=== PATIENT | male | born 1985 | race Two or more races ===

== ENCOUNTER 2023-04-11 11:03 | Emergency (ER) | payer MEDICAID, OTHER ==
[~2023-04-11] VITALS: Ht 170.2 cm; Wt 92.0 kg
[2023-04-11] MEDS ORDERED: LORazepam 2MG/ML-1ML VIAL IV ONE (11:30)
[2023-04-11 11:53] VITALS: PULSE 106; RESP 18; O2SAT 96
[2023-04-11] MEDS ORDERED: FOLIC ACID 1 MG, MULTIPLE VITAMIN 10 ML, MAGNESIUM SULF SDV 50% 8 MEQ, THIAMINE INJ 100... INJ SCH ×5 (12:00)
[2023-04-11 12:10] LABS: Basophils # (auto) 0.2 10 ^3/uL (0-0.2); Eosinophils # (auto) 0 10 ^3/uL (0-0.8); Hemoglobin 15.8 g/dL (13.5-17.5); Neutrophils # (auto) 3.9 10 ^3/uL (1.6-8.6)
[2023-04-11 12:20] LABS: Alanine Aminotransferase 86 U/L (7-40); Albumin 5.2 g/dL (3.2-4.8); Alkaline Phosphatase 124 U/L (46-116); Anion Gap 8 (5-15); Aspartate Aminotransferase 220 U/L (13-40); BUN/Creatinine Ratio 10.5 (10.0-20.0); Basophils % (auto) 3.4 % (0.0-2.0); Blood Alcohol < 3.0 mg/dL (<10); Blood Urea Nitrogen 9 mg/dL (9-23); Carbon Dioxide 30 mmol/L (20-30); Chloride 100 mmol/L (98-107); Eosinophils % (auto) 0.6 % (0.0-7.0); Glucose 89 mg/dL (74-106); Hematocrit 44.5 % (41.0-53.0); Lymphocytes # (auto) 0.8 10 ^3/uL (0.4-5.4); Lymphocytes % (auto) 13.4 % (10.0-50.0); Mean Corpuscular Hemoglobin 35.1 pg (28.0-32.0); Mean Corpuscular Hgb Conc. 35.5 g/dL (32.0-36.0); Monocytes % (auto) 16.8 % (0.0-12.0); Neutrophils % (auto) 65.8 % (37.0-80.0); Potassium 3.5 mmol/L (3.5-5.1); Red Cell Distribution Width 15.2 % (11.8-14.3); Sodium 138 mmol/L (136-145); White Blood Cell 5.9 10^3/uL (4.4-10.8)
[2023-04-11 12:21] LABS: Bilirubin, Total 2.1 mg/dL (0.2-1.0); Total Protein 8.7 g/dL (5.7-8.2)
[2023-04-11 12:58] LABS: Amphetamine Screen, Urine Neg (NEGATIVE); Barbiturate Scree,Urine Neg (NEGATIVE); Benzodiazephine Screen, Urine Neg (NEGATIVE); Cannabinoid Screen, Urine Neg (NEGATIVE); Cocaine Screen, Urine Neg (NEGATIVE); Opiate Scree,Urine Neg (NEGATIVE); Phencyclidine Screen, Urine Neg (NEGATIVE)
[2023-04-11] MEDS ORDERED: CHL10C PO (15:17)
[2023-04-11 15:37] VITALS: BP 130/91; PULSE 98; RESP 16; TEMP 98.7; O2SAT 96
== END 2023-04-11 15:38 | disposition home or self-care (01) ==
LOC: ER 11:03
DX: F10.239 Alcohol dependence with withdrawal, unspecified (principal); K80.20 Calculus of gallbladder without cholecystitis without obstruction; Z79.899 Other long term (current) drug therapy; Z88.8 Allergy status to other drugs, medicaments and biological substances; Y90.0 Blood alcohol level of less than 20 mg/100 ml
CPT/HCPCS: 36415; 74176; 80053; 80307; 80320; 85025; 96365; 96375; 99285; J2060; J3411; J3475; J7030

== ENCOUNTER 2023-09-17 18:10 | Emergency (ER) | payer MEDICAID ==
[~2023-09-17] VITALS: Ht 172.7 cm; Wt 110.0 kg
[~2023-09-17 18:10] MED LIST: CHL10C PO
[2023-09-17 19:12] LABS: Basophils # (auto) 0.2 10 ^3/uL (0-0.2); Basophils % (auto) 2.2 % (0.0-2.0); Eosinophils # (auto) 0 10 ^3/uL (0-0.8); Hematocrit 49.9 % (41.0-53.0); Hemoglobin 16.9 g/dL (13.5-17.5); Lymphocytes # (auto) 1.3 10 ^3/uL (0.4-5.4); Lymphocytes % (auto) 15.9 % (10.0-50.0); Mean Corpuscular Hgb Conc. 33.8 g/dL (32.0-36.0); Mean Corpuscular Volume 97.7 fL (80.0-100.0); Monocytes # (auto) 0.5 10 ^3/uL (0-1.3); Monocytes % (auto) 5.8 % (0.0-12.0); Neutrophils # (auto) 6.3 10 ^3/uL (1.6-8.6); Neutrophils % (auto) 76.1 % (37.0-80.0); Nucleated Red Blood Cells % 0.1 %; Red Blood Cells 5.11 10^6/uL (4.5-5.90); Red Cell Distribution Width 15.1 % (11.8-14.3); White Blood Cell 8.3 10^3/uL (4.4-10.8)
[2023-09-17 19:26] LABS: Alanine Aminotransferase 29 U/L (7-40); Albumin 5.2 g/dL (3.2-4.8); Alkaline Phosphatase 109 U/L (46-116); Anion Gap 19 (5-15); Aspartate Aminotransferase 73 U/L (13-40); BUN/Creatinine Ratio 8.3 (10.0-20.0); Blood Urea Nitrogen 7 mg/dL (9-23); Calcium 9.1 mg/dL (8.5-10.1); Carbon Dioxide 20 mmol/L (20-30); Chloride 100 mmol/L (98-107); Glucose 84 mg/dL (74-106); Potassium 4.4 mmol/L (3.5-5.1); Sodium 139 mmol/L (136-145)
[2023-09-17 19:27] LABS: Total Protein 8.6 g/dL (5.7-8.2)
[2023-09-17 19:37] LABS: Urine Bacteria FEW /hpf (None Seen); Urine Blood 2+ /uL (Negative); Urine Clarity HAZY (Clear); Urine Color Yellow (Yellow); Urine Hyaline Cast FEW /lpf (0 - 2); Urine Mucus FEW (None Seen); Urine Protein, UAD 4+ (Negative); Urine Specific Gravity 1.041 (1.001-1.035); Urine Sperm PRESENT /hpf (None Seen); Urine Urobilinogen Normal (Negative); Urine WBC 4 /hpf (0 - 3)
[2023-09-17 19:43] LABS: Lipase 38 U/L (12-53)
[2023-09-17 19:49] LABS: Salicylate < 3.0 mg/dL (2.8-20.0)
[2023-09-17 19:49] LABS: Amphetamine Screen, Urine Neg (NEGATIVE); Barbiturate Scree,Urine Neg (NEGATIVE); Benzodiazephine Screen, Urine Pos (NEGATIVE); Cannabinoid Screen, Urine Neg (NEGATIVE); Cocaine Screen, Urine Neg (NEGATIVE); Opiate Scree,Urine Neg (NEGATIVE); Phencyclidine Screen, Urine Neg (NEGATIVE)
[2023-09-17 20:40] VITALS: RESP 20; O2SAT 96
[2023-09-17] MEDS: IOHEXOL 350 MG/ML 100ML IJ ONE (20:57)
[2023-09-17 23:36] LABS: Alanine Aminotransferase 25 U/L (7-40); Albumin 4.6 g/dL (3.2-4.8); Alkaline Phosphatase 93 U/L (46-116); Anion Gap 15 (5-15); Aspartate Aminotransferase 59 U/L (13-40); BUN/Creatinine Ratio 10.4 (10.0-20.0); Blood Urea Nitrogen 7 mg/dL (9-23); Carbon Dioxide 21 mmol/L (20-30); Chloride 103 mmol/L (98-107); Glucose 79 mg/dL (74-106); Potassium 3.9 mmol/L (3.5-5.1); Sodium 139 mmol/L (136-145)
[2023-09-17 23:37] LABS: Bilirubin, Total 1.1 mg/dL (0.2-1.0); Total Protein 7.6 g/dL (5.7-8.2)
[2023-09-18] MEDS: chlordiazePOXIDE HCL 25 MG CAP PO ONE (01:00)
[2023-09-18 07:45] VITALS: PULSE 113; RESP 18; O2SAT 100
[2023-09-18 14:08] VITALS: BP 127/75; PULSE 96; RESP 16; TEMP 97.7; O2SAT 100
== END 2023-09-18 14:38 | disposition short-term general hospital (02) ==
LOC: EDUNIT# 18:10 → ER 18:10 → EDBD 18:10 → ER 09-18 14:38
DX: T50.902A Poisoning by unspecified drugs, medicaments and biological substances, intentional self-harm, initial encounter (principal); R51.9 Headache, unspecified; Z79.899 Other long term (current) drug therapy; Z88.8 Allergy status to other drugs, medicaments and biological substances; Y92.89 Other specified places as the place of occurrence of the external cause
CPT/HCPCS: 36415; 70450; 80053; 80307; 80320; 80329; 81001; 83690; 85025; 93005; 99285; Q9967

== ENCOUNTER 2023-12-29 15:17 | Emergency (ER) | payer MEDICAID ==
[~2023-12-29] VITALS: Ht 170.2 cm; Wt 89.8 kg
[2023-12-29 16:00] LABS: Basophils # (auto) 0 10 ^3/uL (0-0.2); Basophils % (auto) 0.3 % (0.0-2.0); Eosinophils # (auto) 0 10 ^3/uL (0-0.8); Eosinophils % (auto) 0.6 % (0.0-7.0); Hematocrit 45.7 % (41.0-53.0); Lymphocytes # (auto) 1.5 10 ^3/uL (0.4-5.4); Lymphocytes % (auto) 32.9 % (10.0-50.0); Mean Corpuscular Hemoglobin 35.2 pg (28.0-32.0); Mean Corpuscular Volume 100.5 fL (80.0-100.0); Monocytes # (auto) 0.6 10 ^3/uL (0-1.3); Neutrophils # (auto) 2.5 10 ^3/uL (1.6-8.6); Neutrophils % (auto) 53.2 % (37.0-80.0); Red Blood Cells 4.54 10^6/uL (4.5-5.90); Red Cell Distribution Width 14.2 % (11.8-14.3); White Blood Cell 4.7 10^3/uL (4.4-10.8)
[2023-12-29] MEDS: THIAMINE HCL 100 MG TAB PO ONE (16:00)
[2023-12-29 16:03] VITALS: BP 147/99; PULSE 92; RESP 18; TEMP 98.4; O2SAT 97
[2023-12-29 16:22] LABS: Alanine Aminotransferase 27 U/L (7-40); Albumin 4.7 g/dL (3.2-4.8); Alkaline Phosphatase 95 U/L (46-116); Anion Gap 10 (5-15); Aspartate Aminotransferase 50 U/L (13-40); Bilirubin, Total 0.5 mg/dL (0.2-1.0); Blood Alcohol 131.3 mg/dL (<10); Calcium 9.2 mg/dL (8.5-10.1); Carbon Dioxide 25 mmol/L (20-30); Chloride 106 mmol/L (98-107); Glucose 121 mg/dL (74-106); Potassium 3.4 mmol/L (3.5-5.1); Sodium 141 mmol/L (136-145); Total Protein 7.9 g/dL (5.7-8.2)
[2023-12-29 16:35] LABS: BUN/Creatinine Ratio 7.6 (10.0-20.0); Blood Urea Nitrogen < 5 mg/dL (9-23)
[2023-12-29 17:11] LABS: Urine Bacteria None Seen /hpf (None Seen)
[2023-12-29] MEDS: FOLIC ACID 1 MG, MAGNESIUM SULF SDV 50% 8 MEQ, MULTIPLE VITAMIN 10 ML, THIAMINE INJ 100... INJ SCH (17:17)
[2023-12-29 17:36] LABS: Urine Blood Negative /uL (Negative); Urine Clarity Clear (Clear); Urine Color Light-Yellow (Yellow); Urine Protein, UAD TRACE (Negative); Urine Specific Gravity 1.014 (1.001-1.035); Urine Urobilinogen Normal (Negative); Urine WBC <1 /hpf (0 - 3); Urine pH 7.5 (5.0-9.0)
[2023-12-29 17:42] LABS: Amphetamine Screen, Urine Neg (NEGATIVE); Barbiturate Scree,Urine Neg (NEGATIVE); Benzodiazephine Screen, Urine Pos (NEGATIVE); Cocaine Screen, Urine Neg (NEGATIVE)
[2023-12-29 17:43] LABS: Cannabinoid Screen, Urine Neg (NEGATIVE); Opiate Scree,Urine Neg (NEGATIVE); Phencyclidine Screen, Urine Neg (NEGATIVE)
[2023-12-29] MEDS ORDERED: FOLIC ACID 1 MG, MAGNESIUM SULF SDV 50% 8 MEQ, MULTIPLE VITAMIN 10 ML, THIAMINE INJ 100... INJ SCH (18:00)
[2023-12-29] MEDS ORDERED: ACET500T58 PO (19:30)
[2023-12-29] MEDS ORDERED: IBUP-1455 PO (19:30)
[2023-12-29] MEDS ORDERED: ZOFR4T PO (19:30)
== END 2023-12-29 22:14 | disposition home or self-care (01) ==
LOC: ER 15:19
DX: F10.139 Alcohol abuse with withdrawal, unspecified (principal); F10.129 Alcohol abuse with intoxication, unspecified; R51.9 Headache, unspecified; F12.10 Cannabis abuse, uncomplicated; Z88.6 Allergy status to analgesic agent; Z79.899 Other long term (current) drug therapy; Y90.8 Blood alcohol level of 240 mg/100 ml or more
CPT/HCPCS: 36415; 80053; 80307; 80320; 81001; 83880; 85025; 99283; J3411; J3475; J7030

== ENCOUNTER 2025-03-11 16:20 | Emergency (ER) | payer MEDICAID ==
[~2025-03-11] VITALS: Ht 175.3 cm; Wt 95.2 kg
[~2025-03-11 16:20] MED LIST changes: +ACET500T58 PO; +IBUP-1455 PO; +ZOFR4T PO
[2025-03-11 16:21] VITALS: BP 108/68; RESP 20; TEMP 99.2; O2SAT 94
--- NOTE | 2025-03-11 16:43 | ECG ---
[facility] Test Date: 2025-03-11 Test Time: 16:35:32 Pat Name: EVI RUSSELL Department: ED Room: Gender: M Brand Analyst: : 1985 Requested By: RAMANA WARD Order Number: [id number] Reading MD: Chan Crockett Measurements Intervals [place] Rate: 124 P: 49 OK: 128 QRS: 77 QRSD: 88 T: 27 QT: 315 QTc: 453 Interpretive Statements Sinus tachycardia Electronically Signed On 03-12-2025 18:47:34 PDT by Chan Crockett Please click the below link to view image of tracing.
[2025-03-11] MEDS ORDERED: SODIUM CHLORIDE 0.9% 1,000 ML IV ONE (16:45)
[2025-03-11] MEDS ORDERED: LORazepam 2MG/ML-1ML VIAL IV ONE (16:45)
[2025-03-11 16:48] VITALS: PULSE 124
--- NOTE | 2025-03-11 16:48 | ED.PDOC ---
History of Present Illness HPI Comments This is a 39-year-old male who comes in with chief complaint of alcohol intoxication. The patient has been drinking since Monday according to his father. He drinks all day every day. At this time, the patient came into the emergency department's initially and then was trying to leave. He has been complaining of some chest pain and palpitations. The patient has also been having some tremors and vomiting. At this time he states that the chest pain is a 9/10. There has been associated shortness for breath. He is accompanied in the emergency department's by his father. The patient denies any suicidal ideation or homicidal ideation. He denies any other substance use. Chief Complaint: Withdrawal Time Seen by MD: 16:39 Primary Care Provider: UNKNOWN Reviewed Notes: Nurses Notes, Medications, Allergies (Allergies to ibuprofen) Allergies: Coded Allergies: Ibuprofen (Verified Allergy, Unknown, 04/11/23) Home Meds Active Scripts Ondansetron Odt 4MG Tab (ZOFRAN PO) 4 Mg Tb, 4 MG PO Q6HP PRN, #10 TAB ODT TAB-DISSOLVE IN MOUTH, THEN SWALLOW Prov:ELAINE KENNEY PAC 12/29/23 Acetaminophen (Acetaminophen) 500 Mg Tab, 500 MG PO Q4HP PRN, #30 TAB Prov:ELAINE KENNEY PAC 12/29/23 Ibuprofen Micronized (Ibuprofen) 800 Mg Tab, 800 MG PO Q8HP PRN, #20 TAB Prov:ELAINE KENNEY PAC 12/29/23 Chlordiazepoxide Hcl (Ni-1) (I (Librium) 10 Mg Cap, 10 MG PO BID for 5 Days, #10 CAP Prov:RAMANA WARD MD 04/11/23 Information Source: Patient, Relative (Father) Mode of Arrival: Ambulatory Severity: Moderate Timing: Days Duration: Since onset Prehospital treatment: None Associated signs and symptoms Associated palpitations with the vomiting and tremors Past Medical History PAST MEDICAL HISTORY: Depression, Seizures Past Medical History (Other): History of liver disease Surgical History: Denies all surgeries Family History Family History: Family hx of Cancer, Family hx of heart sumanth Social History Smoker: Non-Smoker Alcohol: Heavy Drugs: Marijuana Lives In: Home Constitutional: denies: chills, diaphoresis, fatigue, fever, malaise, sweats, weakness, others EENTM: denies: blurred vision, double vision, ear bleeding, ear discharge, ear drainage, ear pain, ear ringing, eye pain, eye redness, hearing loss, mouth pain, mouth swelling, nasal discharge, nose bleeding, nose congestion, nose pain, photophobia, tearing, throat pain, throat swelling, voice changes, others Respiratory: denies: cough, hemoptysis, orthopnea, SOB at rest, shortness of breath, SOB with excertion, stridor, wheezing, others Cardiovascular: reports: chest pain, palpitations; denies: dizzy spells, diaphoresis, Dyspnea on exertion, edema, irregular heart beat, left arm pain, lightheadedness, PND, syncope, others Gastrointestinal: reports: nausea, vomiting; denies: abdomen distended, abdominal pain, blood streaked bowels, constipated, diarrhea, dysphagia, difficulty swallowing, hematemesis, melena, poor appetite, poor fluid intake, rectal bleeding, rectal pain, others Genitourinary: denies: burning, dysuria, flank pain, frequency, hematuria, incontinence, penile discharge, penile sore, pain, testicle pain, testicle swe lling, urgency, others Neurological: reports: tremors; denies: dizziness, fainting, headache, left sided numbness, left sided weakness, numbness, paresthesia, pre-existing deficit, right sided numbness, right sided weakness, seizure, speech problems, tingling, weakness, others Musculoskeletal: denies: back pain, gout, joint pain, joint swelling, muscle pain, muscle stiffness, neck pain, others Integumetry: denies: bruises, change in color, change in hair/nails, dryness, laceration, lesions, lumps, rash, wounds, others Allergic/Immunocompromised: denies: Difficulty Healing, Frequent Infections, Hives, Itching, others Hematologic/Lymphatic: denies: anemia, blood clots, easy bleeding, easy bruising, swollen glands, others Endocrine: denies: excessive hunger, excessive sweating, excessive thirst, excessive urination, flushing, intolerance to cold, intolerance to heat, unexplained weight gain, unexplained weight loss, others Psychiatric: denies: anxiety, bipolar disorder, depression, hopeless, panic disorder, schizophrenia, sleepless, suicidal, others Physical Exam General Appearance: Moderate Distress HEENT: Normal ENT Inspection, Pharynx Normal, TMs Normal Neck: Full Range of Motion, Non-Tender, Normal, Normal Inspection Respiratory: Chest Non-Tender, Lungs Clear, No Accessory Muscle Use, No Respiratory Distress, Normal Breath Sounds Cardiovascular: No Edema, No JVD, No Murmur, No Gallop, Tachycardia Breast Exam: Deferred Gastrointestinal: No Organomegaly, Non Tender, No Pulsatile Mass, Normal Bowel Sounds, Soft Genitalia: Deferred Pelvic: Deferred Rectal: Deferred Extremities: No calf tenderness, Normal capillary refill, No pedal edema Musculoskeletal : Apperance: Normal Neurologic: Alert, bulk fluids handler II-XII nml as Tested, Motor Weakness, Normal Affect, Normal Mood, No Sensory Deficits Cerebellar Function: Normal Reflexes: Normal Skin: Dry, Normal Color, Warm Lymphatic: No Adenopathy Was a procedure done? Was a procedure done?: No EKG EKG : Pulse Rate (adult): 124 [place]: Normal Cardiac Rhythm: ST Block: None ST: Nonsp Differential Dx Considerations may include: Alcohol withdrawal, delirium tremens, seizures, generalized weakness X-Ray, Labs, Meds, VS Vital Signs Date Time Temp Pulse Resp B/P (MAP) Pulse Ox O2 Delivery O2 Flow Rate FiO2 03/11/25 16:48 124 03/11/25 16:35 124 03/11/25 16:21 99.2 135 20 108/68 94 99.2 Lab Test 03/11/25 16:51 Range/Units White Blood Count 6.7 4.4-10.8 10^3/uL Red Blood Count 4.98 4.5-5.90 10^6/uL Hemoglobin 16.1 13.5-17.5 g/dL Hematocrit 45.9 41.0-53.0 % Mean Corpuscular Volume 92.3 80.0-100.0 fL Mean Corpuscular Hemoglobin 32.4 H 28.0-32.0 pg Mean Corpuscular Hemoglobin Concent 35.1 32.0-36.0 g/dL Red Cell Distribution Width 13.6 11.8-14.3 % Platelet Count 255 140-450 10^3/uL Mean Platelet Volume 8.3 6.9-10.8 fL Neutrophils (%) (Auto) 55.5 37.0-80.0 % Lymphocytes (%) (Auto) 32.6 10.0-50.0 % Monocytes (%) (Auto) 10.5 0.0-12.0 % Eosinophils (%) (Auto) 0.2 0.0-7.0 % Basophils (%) (Auto) 1.2 0.0-2.0 % Neutrophils # (Auto) 3.7 1.6-8.6 10 ^3/uL Lymphocytes # (Auto) 2.2 0.4-5.4 10 ^3/uL Monocytes # (Auto) 0.7 0-1.3 10 ^3/uL Eosinophils # (Auto) 0 0-0.8 10 ^3/uL Basophils # (Auto) 0.1 0-0.2 10 ^3/uL Nucleated Red Blood Cells 0.1 % Sodium Level 142 136-145 mmol/L Potassium Level 3.3 L 3.5-5.1 mmol/L Chloride Level 102 98-107 mmol/L Carbon Dioxide Level 24 20-31 mmol/L Anion Gap 16 H 5-15 Blood Urea Nitrogen 8 L 9-23 mg/dL Creatinine 0.77 0.700-1.30 mg/dL Glomerular Filtration Rate Calc 118 >90 mL/min BUN/Creatinine Ratio 10.4 10.0-20.0 Serum Glucose 147 H 74-106 mg/dL Calcium Level 8.8 8.7-10.4 mg/dL Troponin I High Sensitivity Pending Plasma/Serum Blood Alcohol Pending IV Hep-Lock was established The patient was given Ativan 2 mg IV push Seizure precautions are being placed on the patient's secondary to his history of seizures. The patient will be bolused with normal saline at 1 L bolus The patient had a CBC and chemistry done which are within normal limits except for mild hypokalemia and the patient has now left the department's. Time of 1ST Reevaluation: 16:48 Reevaluation 1ST: Unchanged Patient Education/Counseling: Diagnosis, Treatment, Prognosis Family Education/Counseling: Diagnosis, Treatment, Prognosis SEPSIS Sepsis Screen Date sepsis recognized/suspect: Mar 11, 2025 Time Sepsis recognized/suspect: 1620 Recent Procedure: No On Antibiotic Therapy: No Respiratory Rate >20: No Heart Rate >90: Yes Temp<36 C (96.8 F) or >38.3 C: No SBP <90 or MAP <65 mmHG: No New Acute Mental Status Change: No Is the patient on CPAP, BIPAP,: No Physician Orders Troponin-I Hs (03/11/25 16:40) Basic Metabolic Panel (03/11/25 16:40) Heplock Iv (03/11/25 16:40) Rivet Machine Operator (03/11/25 16:40) Blood Pressure (03/11/25 16:40) Pulse Oximetry (03/11/25 16:40) Sodium Chloride 0.9% (03/11/25 16:45) Blood Alcohol (03/11/25 16:40) Drug Screen (03/11/25 16:40) Troponin-I Hs (03/11/25 17:40) Troponin-I Hs (03/11/25 19:40) Electrocardigram (03/11/25 17:40) Electrocardigram (03/11/25 19:40) Seizure Precautions In Place (03/11/25 16:48) Vital Signs Date Time Temp Pulse Resp B/P (MAP) Pulse Ox O2 Delivery O2 Flow Rate FiO2 03/11/25 16:48 124 03/11/25 16:35 124 03/11/25 16:21 99.2 135 20 108/68 94 99.2 Laboratory Tests Test 03/11/25 16:51 White Blood Count 6.7 10^3/uL (4.4-10.8) Departure 1 Departure Time of Disposition: 17:31 Impression: Primary Impression: Alcohol abuse Additional Impression: Hypokalemia Disposition: 07 LEFT AWOL/ELOPED Condition: Fair Critical Care Note Critical Care Time?: No Stability Stability form required: No Heart Score Heart Score: Heart Score Response (Comments) Value History N/A 0 EKG N/A 0 Age N/A 0 Risk Factors N/A 0 Troponin N/A 0 Total 0 RAMANA WARD MD Mar 11, 2025 16:48
[2025-03-11 17:03] LABS: Hematocrit 45.9 % (41.0-53.0); Hemoglobin 16.1 g/dL (13.5-17.5); Mean Corpuscular Hemoglobin 32.4 pg (28.0-32.0); Mean Corpuscular Volume 92.3 fL (80.0-100.0); Nucleated Red Blood Cells % 0.1 %
[2025-03-11 17:09] LABS: Chloride 102 mmol/L (98-107); Sodium 142 mmol/L (136-145)
[2025-03-11 17:10] LABS: Anion Gap 16 (5-15); Calcium 8.8 mg/dL (8.7-10.4); Carbon Dioxide 24 mmol/L (20-31)
[2025-03-11 17:11] LABS: Potassium 3.3 mmol/L (3.5-5.1)
[2025-03-11 17:15] LABS: BUN/Creatinine Ratio 10.4 (10.0-20.0); Blood Urea Nitrogen 8 mg/dL (9-23); Glucose 147 mg/dL (74-106)
== END 2025-03-11 17:02 | disposition left against medical advice (07) ==
LOC: ER 16:20
DX: F10.129 Alcohol abuse with intoxication, unspecified (principal); E87.6 Hypokalemia; Z88.6 Allergy status to analgesic agent; Z79.899 Other long term (current) drug therapy; Y90.9 Presence of alcohol in blood, level not specified
CPT/HCPCS: 36415; 80048; 80320; 84484; 85025; 93005